=== PATIENT | female | born 1945 | race Two or more races ===

== ENCOUNTER 2017-10-23 13:20 | Emergency (ER) | payer OTHER ==
--- NOTE | 2017-10-23 13:58 | EDPHY ---
H & P Time Seen by Provider: 10/23/17 13:38 HPI/ROS: 71-year-old female presents complaining of right shoulder pain. 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 Review of systems As per HPI General no fever no chills no weakness HEENT no eye pain no eye discharge. No eye redness, no sore throat Respiratory no cough, no shortness of breath Cardiac no chest pain, no peripheral edema GI no abdominal pain, no diarrhea, no constipation, no nausea, no vomiting no flank pain, no hematuria, no dysuria Musculoskeletal no myalgias, positive joint pain Heme no easy bruising, no easy bleeding Endo no polyuria, no polydipsia Skin no rashes, no pruritus Neuro no syncope, no dizziness, no headaches Psych is no suicidal ideation, no homicidal ideation Past Medical/Surgical History: Hypertension, hyperlipidemia Social History: Denies alcohol or drug use Smoking Status: Never smoked Physical Exam: 71-year-old female alert and oriented no acute distress nontoxic appearance, afebrile Alert and oriented in no acute distress nontoxic appearance, afebrile Atraumatic normocephalic Neck no JVD Lungs clear to auscultation, no respiratory distress Heart regular rate and rhythm Extremities no cyanosis clubbing edema Right upper extremity- Shoulder-no swelling, most tender at AC joint and lateral deltoid, no ecchymosis , no rash No palpable deformity, distal pulses intact limited abduction, limited external rotation Constitutional: Initial Vital Signs Temperature (C) 36.8 C 10/23/17 13:46 Heart Rate 76 10/23/17 13:46 Respiratory Rate 16 10/23/17 13:46 Blood Pressure 153/83 H 10/23/17 13:46 O2 Sat (%) 94 10/23/17 13:46 O2 Delivery Mode Room Air Allergies/Adverse Reactions: etodolac [From Lodine] Allergy (Verified 10/23/17 13:44) Rash Home Medications: Medication Instructions Recorded Atenolol [Tenormin 25 mg (*)] 07/14/16 FENOFIBRATE 07/14/16 SIMVASTATIN 07/14/16 Medical Decision Making ED Course/Re-evaluation: Patient seen and evaluated for right shoulder injury X-ray consistent with shoulder impingement anatomy No dislocation no fracture Impression Right shoulder sprain Right shoulder impingement syndrome Plan Sling Shoulder exercises Follow up Orthopedics when she returns home to [place] Differential Diagnosis: Differential diagnosis considered but not limited to and in no particular order: Humerus fracture, shoulder dislocation, clavicular fracture, trapezius strain, shoulder impingement, shoulder sprain, rotator cuff injury, shoulder bursitis Departure - Departure Disposition: Home, Routine, Self-Care Clinical Impression: Sprain of shoulder, right, Shoulder impingement Condition: Good Instructions: Rotator Cuff Injury (ED), Shoulder Sprain (ED) Additional Instructions: Wear sling for comfort. May use ice to shoulder. May do gentle exercises to move shoulder, easy hanging arm circles. Referrals: NONE *PRIMARY CARE P,. [Primary Care Provider] - As per Instructions
[2017-10-23 15:18] VITALS: BP 148/84
== END 2017-10-23 15:27 | disposition home or self-care (01) ==
LOC: CED 13:20
DX: S43.401A Unspecified sprain of right shoulder joint, initial encounter (principal); M75.41 Impingement syndrome of right shoulder; I10 Essential (primary) hypertension; X50.0XXA Overexertion from strenuous movement or load, initial encounter
CPT/HCPCS: 73030-PO